=== PATIENT | female | born 1980 | race African-American/Black ===

== ENCOUNTER 2018-02-02 01:05 | Emergency (ER) | payer OTHER ==
[2018-02-02] MEDS: HYDROmorphone HCL 1 MG/ML SYRINGE (J1170) IM (03:40)
== END 2018-02-02 04:33 | disposition home or self-care (01) ==
LOC: M ED 01:05
DX: S80.12XA Contusion of left lower leg, initial encounter (principal); W50.0XXA Accidental hit or strike by another person, initial encounter; Y92.252 Music hall as the place of occurrence of the external cause; Y93.9 Activity, unspecified; Y99.9 Unspecified external cause status; E66.01 Morbid (severe) obesity due to excess calories; Z88.8 Allergy status to other drugs, medicaments and biological substances
CPT/HCPCS: J1170

== ENCOUNTER 2018-10-31 19:43 | Emergency (ER) | payer OTHER ==
[~2018-10-31] VITALS: Ht 162.6 cm; Wt 97.7 kg
[2018-10-31] MEDS ORDERED: NAPR-50 PO (20:37)
[2018-10-31 20:54] VITALS: BP 141/83
[2018-10-31] MEDS ORDERED: KETOROLAC TROMETHAMINE 10 MG TAB PO ONE (21:00)
--- NOTE | 2018-11-02 09:01 | REP ---
RIGHT KNEE, FIVE VIEWS: There is no evidence of an acute fracture, dislocation or intrinsic bone disease. IMPRESSION: No fracture or dislocation. Electronically Signed by Julio Presley MD 11/02/2018 06:44 P
== END 2018-10-31 21:13 | disposition home or self-care (01) ==
LOC: M ED 19:43
DX: S83.91XA Sprain of unspecified site of right knee, initial encounter (principal); X50.1XXA Overexertion from prolonged static or awkward postures, initial encounter; Y92.099 Unspecified place in other non-institutional residence as the place of occurrence of the external cause; Y93.9 Activity, unspecified; Y99.9 Unspecified external cause status; Z88.8 Allergy status to other drugs, medicaments and biological substances

== ENCOUNTER → 2018-11-18 | Outpatient (CLI) | payer OTHER ==
[~2018-11-18] MED LIST: NAPR-50 PO
--- NOTE | 2018-11-18 16:58 | REP ---
Three-phase bone scan of the calves bilaterally. History: Chronic bilateral anterior tibial pain. Exclude stress fracture. Pain associated walking or long periods of standing. No radiographic abnormality reported. Technique: 20.7 mCi technetium 99m MDP is injected and standard three-phase imaging was acquired. Scintigraphic findings: The anterior posterior flow images are unremarkable. Blood pool images demonstrate slightly increased uptake diffusely in the left pretibial soft tissues. On delayed images there is a focal area of minimally increased uptake in the right posterolateral aspect just below the knee consistent with the tibiofibular articulation. This may be early arthritic uptake. There is no evidence to suggest tibial stress fracture or fibular stress fracture. No stress periostitis pattern is seen. Study is otherwise unremarkable. Impression: Small focus of increased uptake on delayed scans just below the knee posterolaterally consistent with early proximal tibiofibular spurring or arthropathy. Otherwise negative. No evidence of tibial or fibular stress injury seen. Electronically Signed by Christiano Rodriguez MD 11/18/2018 07:30 P
== END ==
LOC: M RAD 10:30
PROVIDERS: ATTEND Family Medicine
DX: M79.604 Pain in right leg (principal); M79.605 Pain in left leg
CPT/HCPCS: 78315; A9503

== ENCOUNTER → 2018-12-01 | Outpatient (CLI) | payer OTHER ==
--- NOTE | 2018-12-02 07:46 | REP ---
Clinical: Periumbilical and epigastric pain. Technique: Axial noncontrast images from the lung bases to the pubic symphysis with coronal and sagittal re-formations. Findings: Lung bases are clear. Liver, spleen, pancreas, bilateral adrenal glands and kidneys are essentially normal for noncontrast evaluation. Cholelithiasis noted without evidence for acute cholecystitis. The enteric system is without obstruction or obvious acute inflammatory process. Pelvis demonstrates normal bladder and age-appropriate uterus/adnexa. A very subtle small fat containing periumbilical hernia cannot be excluded. No ascites. No free air. No obvious adenopathy. Musculoskeletal structures intact without focal osseous abnormality. Impression: 1. Cholelithiasis. 2. Very subtle forming fat containing periumbilical hernia cannot be excluded. 3. No further acute abdominopelvic pathology appreciated. Electronically Signed by Oziel Barclay MD 12/02/2018 07:38 A
== END ==
LOC: M RAD 15:24
PROVIDERS: ATTEND Surgery
DX: R10.13 Epigastric pain (principal); K80.20 Calculus of gallbladder without cholecystitis without obstruction

== ENCOUNTER → 2019-04-10 | Outpatient (CLI) | payer OTHER ==
[~2019-04-10] MED LIST changes: +ADV250INH; +BIOT1CAP2 PO; +MAGN400C2 PO; +MULTCAP PO; -NAPR-50 PO; +NAPR-837 PO; +PROAAER10; +VITAD1000T PO
--- NOTE | 2019-04-10 15:52 | REP ---
Ultrasonography of the anterior abdominal wall for a painful lump: The patient had umbilical hernia repair 2 years ago. She had fat removed from mesh 2 weeks ago. Ultrasonography of the painful lump identifies a complex cyst to the right of the umbilicus with irregular margins and internal debris measuring 4.3 x 2.1 x 4.1 cm. Impression: The palpable lump corresponds to a a complex cyst as described. This could represent a seroma, hematoma or abscess. The anterior wall of the cyst is approximately 7 mm from the anterior abdominal wall skin surface. Electronically Signed by Julio Calabrese MD 04/10/2019 03:44 P
== END ==
LOC: M RAD 15:07
PROVIDERS: ATTEND Surgery
DX: L76.82 Other postprocedural complications of skin and subcutaneous tissue (principal)

== ENCOUNTER → 2019-06-03 | Outpatient (REF) | payer OTHER ==
[~2019-06-03] MED LIST changes: +CHOL100029 PO; -VITAD1000T PO
[2019-06-03 13:39] LABS: AMORPHOUS SEDIMENT SMALL (NEGATIVE); APPEARANCE, URINE TURBID (CLEAR); BACTERIA, URINE AUTO NEGATIVE (NEGATIVE); BILIRUBIN, URINE AUTO NEGATIVE (NEGATIVE); BLOOD, URINE BLOOD 1+ (NEGATIVE); COLOR, URINE YELLOW (YELLOW); GLUCOSE, URINE (UA) AUTO NEGATIVE (NEGATIVE); KETONE, URINE AUTO NEGATIVE (NEGATIVE); LEUKOCYTE ESTERASE, URINE AUTO NEGATIVE (NEGATIVE); MUCUS, URINE SMALL (NEGATIVE); NITRITE, URINE AUTO NEGATIVE (NEGATIVE); PROTEIN, URINE AUTO NEGATIVE (NEGATIVE); RBC, URINE AUTO 9 /HPF (0-3); SPECIFIC GRAVITY URINE AUTO 1.015 (1.002-1.035); SQUAMOUS EPITHELIAL CELL UR AU 1 /HPF (0-6); UROBILINOGEN, URINE AUTO 0.2 mg/dL (0.0-2.0); WBC, URINE AUTO 3 /HPF (0-3)
== END ==
LOC: M LAB REF 12:30
PROVIDERS: ATTEND Obstetrics & Gynecology
DX: N39.0 Urinary tract infection, site not specified (principal)